=== PATIENT | female | born 2000 | race African-American/Black ===

== ENCOUNTER 2024-12-24 00:36 | Emergency (ER) | payer SELFPAY ==
[~2024-12-24] VITALS: Ht 172.7 cm; Wt 89.0 kg
[2024-12-24 00:43] VITALS: O2SAT 97
[2024-12-24] MEDS: ONDANSETRON HCL 4MG/2ML INJ IV ONE (01:55)
[2024-12-24 02:39] LABS: INR 1.1
[2024-12-24 02:41] LABS: BASOPHILS % 0.4 % (0.0-2.0); EOSINOPHILS % 0.3 % (0.0-5.0); HEMATOCRIT. 33.4 % (36.0-48.0); HEMOGLOBIN. 11.0 g/dL (12.0-16.0); LYMPHOCYTES % 30.6 % (20.0-50.0); MEAN PLATELET VOLUME 9.2 fl (7.4-10.4); MONOCYTES % 5.9 % (2.0-8.0); NEUTROPHILS % 62.8 % (40.0-76.0); PLATELET 301 x1000/uL (130-400); RED BLOOD CELL COUNT 3.90 mill/uL (4.2-5.4); RED CELL DISTRIBUTION WIDTH 14.3 % (11.6-14.6)
[2024-12-24 02:46] LABS: CREATININE 0.8 mg/dL (0.6-1.0)
[2024-12-24 02:47] LABS: ETHANOL BLOOD 139 mg/dL (<10); TROPONIN I HIGH SENSITIVITY < 4 ng/L (3.0-34); UREA NITROGEN BLOOD 10 mg/dL (9-23)
[2024-12-24 04:50] VITALS: BP 110/74; PULSE 81; RESP 18; O2SAT 100
== END 2024-12-24 05:15 | disposition home or self-care (01) ==
LOC: ER 01:56
DX: G92.9 Unspecified toxic encephalopathy (principal); F10.129 Alcohol abuse with intoxication, unspecified; Z79.899 Other long term (current) drug therapy; Y90.6 Blood alcohol level of 120-199 mg/100 ml
CPT/HCPCS: 80048; 80320; 82140; 82962; 83880; 84443; 85025; 85610; 85730; 84484; 36415; 71045; 93005; 96374; 99285; J2405; G0480